=== PATIENT | female | born 1960 | race Caucasian/White ===

== ENCOUNTER 2019-06-24 17:14 | Emergency (ER) | payer OTHER, BC ==
[2019-06-24 17:39] VITALS: TEMP 97.7; BMI 30.7
[2019-06-24] MEDS ORDERED: METOPROLOL TARTRATE 5 MG/5 ML VIAL IVPUSH ONE (17:48)
--- NOTE | 2019-06-24 17:48 | PDOC ---
History of Present Illness - General Chief Complaint: Chest Pain Stated Complaint: CHEST PAIN Time Seen by Provider: 06/24/19 17:23 - History of Present Illness Initial Comments: Ms. Guillen is a 59 y/o female with PMH of re-entrant short circuit, hypothyroidism, presenting today with tachycardia that started 1.5 hours ago. Reports that she was at the car show throughout the day when she felt her heart start racing. Took her metoprolol today. She has had similar episodes a few times over the past year. Was given adenosine once at [facility]. Follows with cards. She had a stress test two weeks ago which was normal, and a normal echo 1 year ago, and normal 24 hr halter monitor. Denies dizziness, headache, nausea, vomiting, chest pain, shortness of breath, abdominal pain. FamHx: quadruple bypass in mother, stents in brother Cards: [employer] Past History - Past Medical History Allergies/Adverse Reactions: Allergies Allergy/AdvReac Type Severity Reaction Status Date / Time No Known Allergies Allergy Verified 06/24/19 17:50 Home Medications: Ambulatory Orders Albuterol 0.083% Nebulizer Radha [Ventolin 0.083% Nebulizer Soln -] 1 neb NEB Q6H PRN 06/24/19 Aspirin/Acetaminophen/Caffeine [Excedrin Migraine Caplet] 1 each PO PRN PRN 10/02 Levothyroxine [Synthroid -] 125 mcg PO DAILY 06/24/19 Metoprolol Tartrate [Lopressor -] 12.5 mg PO DAILY 06/24/19 COPD: No - Immunization History Immunization Up to Date: (unknown) - Suicide/Smoking/Psychosocial Hx Smoking History: Never smoked Hx Alcohol Use: No Drug/Substance Use Hx: No Review of Systems - Review of Systems Comments:: ROS GENERAL/CONSTITUTIONAL: No fever or chills. No weakness._ HEAD, EYES, EARS, NOSE AND THROAT: No change in vision. No ear pain or discharge. No sore throat._ CARDIOVASCULAR: Reports racing heartbeat. Denies shortness of breath_ RESPIRATORY: Denies cough, hemoptysis_ GASTROINTESTINAL: No nausea, vomiting, diarrhea or constipation._ GENITOURINARY: No dysuria, frequency, or change in urination._ MUSCULOSKELETAL: No joint or muscle swelling or pain. No neck or back pain._ SKIN: No rash_ NEUROLOGIC: No headache, vertigo, loss of consciousness, or change in strength/ sensation._ ENDOCRINE: No increased thirst. No abnormal weight change_ HEMATOLOGIC/LYMPHATIC: No anemia, easy bleeding, or history of blood clots._ ALLERGIC/IMMUNOLOGIC: No hives or skin allergy._ *Physical Exam - Vital Signs Last Vital Signs Temp Pulse Resp BP Pulse Ox 97.7 F 135 H 23 H 155/104 H 100 06/24/19 17:38 06/24/19 17:38 06/24/19 17:38 06/24/19 17:38 06/24/19 17:38 - Physical Exam Comments: GENERAL: Awake, alert, and oriented to person/place/time, mildly anxious HEAD: No signs of trauma, normocephalic, atraumatic _ EYES: PERRLA, EOMI, sclera anicteric, conjunctiva clear_ ENT: Hearing grossly normal, nares patent, oropharynx clear without exudates. No uvular deviation. Moist mucosa_ NECK: Normal ROM, supple, no lymphadenopathy, JVD, or masses_ LUNGS: No distress, speaks in full sentences, clear to auscultation bilaterally _ HEART: Tachycardia, normal S1 and S2, no murmurs appreciated, peripheral pulses normal and equal bilaterally._ ABDOMEN: Soft, nontender, normoactive bowel sounds. No guarding, no rebound. No masses_ EXTREMITIES: Normal inspection, Normal range of motion, no edema. No clubbing or cyanosis_ NEUROLOGICAL: Cranial nerves II through XII grossly intact. Normal speech, normal gait, no focal sensorimotor deficits _ SKIN: Warm, Dry, normal turgor, no rashes or lesions noted_ ED Treatment Course - LABORATORY CBC & Chemistry Diagram: 06/24/19 18:00 06/24/19 18:00 Medical Decision Making - Medical Decision Making 59F with hx of tachycardia on metoprolol, likely reentrant circuit, hypothyroidism on synthroid, here for tachycardia that started 1.5 hours ago. Obtain CBC, CMP, TSH, EKG, trop, coags. 06/24/19 1800 HRs in the 135s. 5 mg metoprolol push IV. EKG shows ?sinus tachycardia, left anterior block, no ST elevation/depression, QTc 486 ms. 06/24/19 18:54 Pt reassessed. Went to urinate. HR now in the high 60s/low 70s. Will observe for the next couple of hours. Trop negative. TSH low. 06/24/19 20:05 VSS. Pt stable for d/c. Strict return precautions given. F/u PCP for synthroid medication adjustment and cards. *DC/Admit/Observation/Transfer Diagnosis at time of Disposition: Tachycardia - Discharge Dispostion Disposition: HOME Condition at time of disposition: Stable Decision to Admit order: No - Referrals Referrals: Tyson Betancourt MD [Primary Care Provider] - - Patient Instructions Additional Instructions: Please make an appointment with your PCP (Jerzy) to follow up with your hypothyroidism and synthroid use (your TSH level was low today). 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 Betancourt) to follow up. If you experience any new, worsening, or concerning symptoms, including fast heart rate, palpitations, dizziness, headache, nausea, vomiting, weakness, chest pain, shortness of breath, or any other symptoms, please return to the emergency room. - Post Discharge Activity Forms/Work/School Notes: Back to Work
[2019-06-24] MEDS ORDERED: METOPROLOL TARTRATE 5 MG/5 ML VIAL ONE (17:53)
[2019-06-24 18:09] LABS: BASO % 0.7 % (0-2.0); EOS % 1.3 % (0-4.5); HEMATOCRIT 42.9 % (32.4-45.2); HEMOGLOBIN 14.6 GM/dL (10.7-15.3); MCH 30.1 pg (25.7-33.7); MEAN CELL VOLUME 88.6 fl (80-96); MEAN PLT VOLUME 7.6 fl (7.5-11.1); MONO % 9.5 % (3.8-10.2); NEUT % 56.5 % (42.8-82.8); PLATELET COUNT 304 K/MM3 (134-434); RBC 4.84 M/mm3 (3.60-5.2); RDW 13.5 % (11.6-15.6); WHITE BLOOD COUNT 7.7 K/mm3 (4.0-10.0)
[2019-06-24] MEDS ORDERED: SODIUM CHLORIDE 0.9% 500 ML INFUS.BAG IV ONE (18:09)
--- NOTE | 2019-06-24 18:24 | PDOC ---
Documentation entered by Jackson Hernandez SCRIBE, acting as scribe for Karolina Monahan MD. Karolina Monahan MD: This documentation has been prepared by the scribe, Jackson Hernandez SCRIBE, under my direction and personally reviewed by me in its entirety. I confirm that the documentation accurately reflects all work, treatment, procedures, and medical decision making performed by me. 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 Similar to prior episodes with her arrhythmia. She takes metoprolol daily, follows up with a transit mechanic. She had a recent outpatient holter monitor, readings were normal as per her verbal report. Denies cp, SOB, leg swelling. - Physicial Exam PE: GENERAL: Awake, alert, and fully oriented, in no acute distress HEAD: No signs of trauma EYES: PERRLA, EOMI, sclera anicteric, conjunctiva clear ENT: Auricles normal inspection, hearing grossly normal, nares patent, oropharynx clear without exudates. Moist mucosa NECK: Normal ROM, supple, no lymphadenopathy, JVD, or masses LUNGS: Breath sounds equal, clear to auscultation bilaterally. No wheezes, and no crackles HEART: Tachycardic with regular rhythm, normal S1 and S2, no murmurs, rubs or gallops ABDOMEN: Soft, nontender, normoactive bowel sounds. No guarding, no rebound. No masses EXTREMITIES: Normal range of motion, no edema. No clubbing or cyanosis. No cords, erythema, or tenderness NEUROLOGICAL: Cranial nerves II through XII grossly intact. Normal speech, normal gait. Motor and sensation intact SKIN: Warm, dry, normal turgor, no rashes or lesions noted. - Medical Decision Making 06/24/19 18:22 Gave metoprolol 5mg IV, as patient is already on a B-johanna as an outpatient. She has been given adenosine in the past, states she adamantly does not want to be given adenosine again. Will give 20 minutes for B-johanna to take effect. If not, will consider CCB.
[2019-06-24] MEDS ORDERED: dilTIAZem HCL 50 MG/10 ML - 10 ML VIAL IVPUSH ONE (18:34)
[2019-06-24 18:59] LABS: INR 0.96 (0.83-1.09); PROTHROMBIN TIME (PATIENT) 11.3 SEC (9.7-13.0)
[2019-06-24 19:05] LABS: ALBUMIN 4.3 g/dl (3.4-5.0); ALK PHOS 106 U/L (45-117); ANION GAP 6 MMOL/L (8-16); BILIRUBIN,TOTAL 0.3 mg/dL (0.2-1); BLOOD UREA NITROGEN 15.8 mg/dL (7-18); CALCIUM 9.4 mg/dL (8.5-10.1); CHLORIDE 107 mmol/L (98-107); CO2 30 mmol/L (21-32); CREATININE 0.9 mg/dL (0.55-1.3); GLUCOSE,RANDOM 94 mg/dL (74-106); POTASSIUM 4.1 mmol/L (3.5-5.1); SGOT/AST 22 U/L (15-37); SGPT/ALT 31 U/L (13-61); SODIUM 143 mmol/L (136-145); TOT PROT 8.1 g/dl (6.4-8.2)
[2019-06-24 20:37] VITALS: BP 125/73; PULSE 82
--- NOTE | 2019-06-25 11:15 | EKG ---
Test Reason : Blood Pressure : / mmHG Vent. Rate : 144 BPM Atrial Rate : 144 BPM P-R Int : 130 ms QRS Dur : 076 ms QT Int : 314 ms P-R-T Axes : 000 -61 056 degrees QTc Int : 486 ms SINUS TACHYCARDIA LEFT ANTERIOR FASCICULAR BLOCK NONSPECIFIC ST ABNORMALITY ABNORMAL ECG NO PREVIOUS ECGS AVAILABLE Confirmed by JASON MARIE, KATYA ([id number]) on 06/25/2019 11:15:33 AM Referred By: Confirmed By:KATYA GOMEZ MD
== END 2019-06-24 20:38 | disposition home or self-care (01) ==
LOC: JER 17:14
PROC: 3E033GC Introduction of Other Therapeutic Substance into Peripheral Vein, Percutaneous Approach (ICD-10-PCS; principal; 2019-06-24)
PROC: 3E0337Z Introduction of Electrolytic and Water Balance Substance into Peripheral Vein, Percutaneous Approach (ICD-10-PCS; 2019-06-24)
DX: R00.0 Tachycardia, unspecified (principal); E03.9 Hypothyroidism, unspecified
CPT/HCPCS: 36415; 80053; 82550; 84443; 84484; 85025; 85610; 85730; 93005; 93010; 99284-25

== ENCOUNTER 2025-01-03 15:12 | Inpatient (IN) | payer OTHER, MEDICARE ==
[2025-01-03 15:31] VITALS: BMI 29.3
[2025-01-03] MEDS ORDERED: LIDOCAINE 5% TOPICAL PATCH ONE (17:03)
[2025-01-03] MEDS ORDERED: KETOROLAC TROMETHAMINE 15 MG/ML VIAL ONE ×2 (17:04→23:27)
[2025-01-03] MEDS: LIDOCAINE 5% TOPICAL PATCH TP ONE (17:27)
[2025-01-03] MEDS: KETOROLAC TROMETHAMINE 30 MG/1 ML VIAL IVPUSH ONE (17:29)
[2025-01-03 17:49] LABS: BASO % 0.3 % (0-2.0); EOS % 0.8 % (0-4.5); HEMATOCRIT 40.3 % (32.4-45.2); HEMOGLOBIN 13.5 GM/dL (10.7-15.3); LYMPH % 13.5 % (8-40); MCH 29.4 pg (25.7-33.7); MCHC 33.6 g/dl (32.0-36.0); MEAN CELL VOLUME 87.6 fl (80-96); MONO % 7.9 % (3.8-10.2); NEUT % 77.5 % (42.8-82.8); PLATELET COUNT 380 10^3/uL (134-434); RBC 4.61 M/mm3 (3.60-5.2); RDW 13.8 % (11.6-15.6); WHITE BLOOD COUNT 11.6 K/mm3 (4.0-10.0)
[2025-01-03] MEDS ORDERED: CEFTRIAXONE 1 G/50 ML PREMIX 50 ML IVPB ONE (17:50)
[2025-01-03] MEDS ORDERED: AZITHROMYCIN IVPB 500 MG/250 ML BAG IVPB ONE (17:51)
[2025-01-03 18:05] LABS: CHLORIDE 101 mmol/L (98-107); SODIUM 135 mmol/L (136-145)
[2025-01-03 18:07] LABS: CALCIUM 9.1 mg/dL (8.5-10.1)
[2025-01-03 18:08] LABS: ALBUMIN 3.1 g/dl (3.4-5.0); BLOOD UREA NITROGEN 7.9 mg/dL (7-18); CO2 30 mmol/L (21-32); GLUCOSE,RANDOM 99 mg/dL (74-106)
[2025-01-03 18:11] LABS: CREATININE 0.9 mg/dL (0.55-1.3); SGOT/AST 69 U/L (15-37)
[2025-01-03 18:12] LABS: BILIRUBIN,TOTAL 0.6 mg/dL (0.2-1); TOT PROT 7.6 g/dl (6.4-8.2)
[2025-01-03 18:13] LABS: ALK PHOS 98 U/L (45-117)
[2025-01-03] MEDS: AZITHROMYCIN IVPB 500 MG in DEXTROSE 5%-WATER - 250 ML IVPB ONE (18:14)
[2025-01-03 18:33] LABS: ANION GAP 4 mmol/L (4-13); POTASSIUM 6.2 mmol/L (3.5-5.1); SGPT/ALT 30 U/L (13-61)
[2025-01-03] MEDS ORDERED: VANCOMYCIN/WATER 1250 MG 1,250 MG/250 ML BAG IVPB ONE (18:46)
[2025-01-03] MEDS: VANCOMYCIN/WATER 1250 MG 1,250 MG/250 ML BAG IVPB ONE (19:05)
[2025-01-03 19:30] LABS: INR 1.09 (0.83-1.09)
[2025-01-03 19:32] LABS: ACTIVATED PTT 33.5 SECONDS (25.2-36.5)
[2025-01-03 19:50] LABS: POTASSIUM 4.1 mmol/L (3.5-5.1)
[2025-01-03 19:51] LABS: CALCIUM 8.9 mg/dL (8.5-10.1)
[2025-01-03 19:52] LABS: BLOOD UREA NITROGEN 8.6 mg/dL (7-18)
[2025-01-03 19:55] LABS: CREATININE 0.8 mg/dL (0.55-1.3)
[2025-01-03] MEDS ORDERED: cefTRIAXone SODIUM 1 GM VIAL ONE (20:04)
[2025-01-03] MEDS ORDERED: DEXTROSE 5%-WATER 100 ML IVPB ONE (20:04)
[2025-01-03] MEDS: CEFTRIAXONE 1 GM in DEXTROSE 5%-WATER - 100 ML IVPB ONE (21:41)
[2025-01-03] MEDS: LIDOCAINE PATCH REMOVAL MC SCH ×2 (22:01→22:33)
[2025-01-03] MEDS ORDERED: PIPERACILLIN/TAZOB 4.5 GM 4.5 GM in DEXTROSE 5%-WATER 100 ML IVPB SCH (22:30)
[2025-01-03] MEDS ORDERED: PIPERACILLIN/TAZOB 4.5 GM 4.5 GM/100 ML BAG IVPB ONE (23:27)
[2025-01-03] MEDS: PIPERACILLIN/TAZOB 4.5 GM 4.5 GM in DEXTROSE 5%-WATER 100 ML IVPB SCH (23:34)
[2025-01-03] MEDS: KETOROLAC TROMETHAMINE 15 MG/ML VIAL IVPUSH ONE (23:34)
[2025-01-03] MEDS ORDERED: guaiFENesin/D-METHORPHAN HB 10 ML UNIT-DOSE CUPS PO PRN (23:51)
[2025-01-04] MEDS: metoPROLOL SUCCINATE 25 MG TAB.SR.24H (FP) PO ONE (00:59)
[2025-01-04] MEDS: metoPROLOL SUCCINATE 25 MG TAB.SR.24H (FP) PO SCH (01:31)
[2025-01-04] MEDS ORDERED: PIPERACILLIN/TAZOB 4.5 GM 4.5 GM/100 ML BAG IVPB ONE ×2 (04:35→11:36)
[2025-01-04] MEDS ORDERED: LEVOTHYROXINE NA 100 MCG TABLET (FP) ONE (05:27)
[2025-01-04] MEDS: OFLOXACIN 0.3% OPHTHALMIC SOLUTION 5 ML BOTTLE OD SCH (06:10)
[2025-01-04] MEDS: LEVOTHYROXINE NA 100 MCG TABLET (FP) PO SCH (06:10)
[2025-01-04] MEDS ORDERED: VANCOMYCIN/WATER 1250 MG 1,250 MG/250 ML BAG IVPB SCH (08:00)
[2025-01-04] MEDS: VANCOMYCIN/WATER 1250 MG 1,250 MG/250 ML BAG IVPB SCH (08:52)
[2025-01-04] MEDS ORDERED: VANCOMYCIN/WATER 1250 MG 1,250 MG/250 ML BAG IVPB ONE (08:53)
[2025-01-04] MEDS ORDERED: HYDROCHLOROTHIAZIDE 25 MG TABLET (FP) ONE (10:26)
[2025-01-04] MEDS ORDERED: AZITHROMYCIN 250 MG TABLET ONE (10:26)
[2025-01-04] MEDS ORDERED: metoPROLOL SUCCINATE 25 MG TAB.SR.24H (FP) PO ONE (10:26)
[2025-01-04] MEDS ORDERED: LIDOCAINE 4% PATCH TP ONE (10:27)
[2025-01-04] MEDS ORDERED: ENOXAPARIN NA (PORCINE) 40 MG/0.4 ML DISP.SYRIN SQ ONE (10:27)
[2025-01-04] MEDS: AZITHROMYCIN 250 MG TABLET PO SCH (10:38)
[2025-01-04] MEDS: ENOXAPARIN NA (PORCINE) 40 MG/0.4 ML DISP.SYRIN SQ SCH (10:38)
[2025-01-04] MEDS: HYDROCHLOROTHIAZIDE 12.5 MG CAPSULE (FP) PO SCH (10:38)
[2025-01-04] MEDS: LIDOCAINE 4% PATCH TP SCH (10:38)
[2025-01-04 11:09] LABS: BASO % 0.8 % (0-2.0); EOS % 2.7 % (0-4.5); HEMATOCRIT 36.3 % (32.4-45.2); HEMOGLOBIN 12.2 GM/dL (10.7-15.3); LYMPH % 26.9 % (8-40); MCH 29.3 pg (25.7-33.7); MCHC 33.7 g/dl (32.0-36.0); MEAN CELL VOLUME 86.9 fl (80-96); MONO % 8.9 % (3.8-10.2); NEUT % 60.7 % (42.8-82.8); PLATELET COUNT 391 10^3/uL (134-434); RBC 4.18 M/mm3 (3.60-5.2); RDW 13.4 % (11.6-15.6); WHITE BLOOD COUNT 6.7 K/mm3 (4.0-10.0)
[2025-01-04 11:35] LABS: POTASSIUM 3.5 mmol/L (3.5-5.1)
[2025-01-04 11:40] LABS: ALBUMIN 2.8 g/dl (3.4-5.0); MAGNESIUM 2.2 mg/dL (1.8-2.4)
[2025-01-04 11:43] LABS: CREATININE 0.9 mg/dL (0.55-1.3); PHOSPHOROUS 3.1 mg/dL (2.5-4.9)
[2025-01-04 11:45] LABS: BILIRUBIN,TOTAL 0.5 mg/dL (0.2-1); TOT PROT 6.4 g/dl (6.4-8.2)
[2025-01-04] MEDS: SODIUM CHLORIDE 1,000 ML IV SCH (13:52)
[2025-01-04] MEDS ORDERED: ALBUTEROL SO4 2.5/IPRATROPIUM 0.5 INH SOL 3 ML VIAL.NEB. NEB PRN (17:49)
[2025-01-04] MEDS: methylPREDNISolone NA SUCC 40 MG/1 ML VIAL IVPUSH SCH (18:21)
[2025-01-04] MEDS ORDERED: ALBUTEROL SO4 2.5/IPRATROPIUM 0.5 INH SOL 3 ML VIAL.NEB. NEB SCH (20:00)
[2025-01-04] MEDS: ACETAMINOPHEN 325 MG TABLET (FP) PO PRN (21:22)
[2025-01-04] MEDS: ERYTHROMYCIN 0.5% OPHTHALMIC OINTMENT 3.5 GM TUBE OD SCH (22:20)
[2025-01-05 07:49] LABS: BASO % 0.2 % (0-2.0); HEMATOCRIT 38.2 % (32.4-45.2); HEMOGLOBIN 13.1 GM/dL (10.7-15.3); LYMPH % 15.8 % (8-40); MCH 29.8 pg (25.7-33.7); MCHC 34.4 g/dl (32.0-36.0); MEAN CELL VOLUME 86.8 fl (80-96); MEAN PLT VOLUME 7.4 fl (7.5-11.1); MONO % 2.9 % (3.8-10.2); NEUT % 81.1 % (42.8-82.8); PLATELET COUNT 465 10^3/uL (134-434); RDW 13.4 % (11.6-15.6); WHITE BLOOD COUNT 7.3 K/mm3 (4.0-10.0)
[2025-01-05 08:02] LABS: POTASSIUM 4.1 mmol/L (3.5-5.1)
[2025-01-05 08:04] LABS: CALCIUM 9.2 mg/dL (8.5-10.1)
[2025-01-05 08:05] LABS: ALBUMIN 3.2 g/dl (3.4-5.0); BLOOD UREA NITROGEN 11.6 mg/dL (7-18); MAGNESIUM 2.2 mg/dL (1.8-2.4)
[2025-01-05 08:08] LABS: CREATININE 0.8 mg/dL (0.55-1.3)
[2025-01-05 08:09] LABS: BILIRUBIN,TOTAL 0.4 mg/dL (0.2-1); TOT PROT 7.2 g/dl (6.4-8.2)
[2025-01-05 15:17] LABS: N-TERMINAL BNP 196.6 pg/ml (5-125)
[2025-01-05] MEDS: CEFTRIAXONE 1 G/50 ML PREMIX 50 ML IVPB SCH (23:18)
[2025-01-06 08:00] LABS: BASO % 0.3 % (0-2.0); EOS % 0.2 % (0-4.5); HEMATOCRIT 37.8 % (32.4-45.2); HEMOGLOBIN 12.7 GM/dL (10.7-15.3); LYMPH % 26.1 % (8-40); MCH 29.6 pg (25.7-33.7); MCHC 33.6 g/dl (32.0-36.0); MEAN CELL VOLUME 88.2 fl (80-96); MEAN PLT VOLUME 7.3 fl (7.5-11.1); MONO % 5.6 % (3.8-10.2); NEUT % 67.8 % (42.8-82.8); PLATELET COUNT 505 10^3/uL (134-434); RBC 4.29 M/mm3 (3.60-5.2); RDW 13.6 % (11.6-15.6); WHITE BLOOD COUNT 12.2 K/mm3 (4.0-10.0)
[2025-01-06 08:12] LABS: POTASSIUM 3.8 mmol/L (3.5-5.1)
[2025-01-06 08:14] LABS: CALCIUM 9.4 mg/dL (8.5-10.1)
[2025-01-06 08:15] LABS: ALBUMIN 3.1 g/dl (3.4-5.0); BLOOD UREA NITROGEN 14.8 mg/dL (7-18); MAGNESIUM 2.2 mg/dL (1.8-2.4)
[2025-01-06 08:18] LABS: CREATININE 0.8 mg/dL (0.55-1.3)
[2025-01-06 08:19] LABS: BILIRUBIN,TOTAL 0.2 mg/dL (0.2-1); TOT PROT 6.9 g/dl (6.4-8.2)
[2025-01-06] MEDS ORDERED: guaiFENesin/D-METHORPHAN HB 10 ML UNIT-DOSE CUPS PO PRN (10:39)
[2025-01-06] MEDS: guaiFENesin/CODEINE 10 ML UNIT-DOSE CUPS PO PRN (11:24)
[2025-01-06] MEDS: LOPERAMIDE HCL 2 MG CAPSULE PO ONE (14:12)
[2025-01-06 22:29] VITALS: TEMP 98.1
[2025-01-07 07:22] LABS: BASO % 0.3 % (0-2.0); EOS % 0.2 % (0-4.5); HEMATOCRIT 41.2 % (32.4-45.2); HEMOGLOBIN 13.9 GM/dL (10.7-15.3); LYMPH % 33.1 % (8-40); MCH 29.5 pg (25.7-33.7); MCHC 33.8 g/dl (32.0-36.0); MEAN CELL VOLUME 87.2 fl (80-96); MEAN PLT VOLUME 7.2 fl (7.5-11.1); MONO % 5.7 % (3.8-10.2); NEUT % 60.7 % (42.8-82.8); PLATELET COUNT 558 10^3/uL (134-434); RBC 4.72 M/mm3 (3.60-5.2); WHITE BLOOD COUNT 8.9 K/mm3 (4.0-10.0)
[2025-01-07 07:42] LABS: POTASSIUM 4.2 mmol/L (3.5-5.1)
[2025-01-07 07:44] LABS: CALCIUM 9.7 mg/dL (8.5-10.1)
[2025-01-07 07:45] LABS: ALBUMIN 3.4 g/dl (3.4-5.0); BLOOD UREA NITROGEN 16.7 mg/dL (7-18); MAGNESIUM 2.2 mg/dL (1.8-2.4)
[2025-01-07 07:48] LABS: CREATININE 0.9 mg/dL (0.55-1.3)
[2025-01-07 07:49] LABS: BILIRUBIN,TOTAL 0.3 mg/dL (0.2-1); TOT PROT 7.4 g/dl (6.4-8.2)
[2025-01-07 10:59] VITALS: BP 110/58; PULSE 59; RESP 17
== END 2025-01-07 13:38 | disposition home or self-care (01) | DRG 194 ==
LOC: JER 15:12 → JERBED 19:31 → OBSVTOIN 22:21 → J4W 01-04 14:38
PROVIDERS: ADMIT Student in an Organized Health Care Education/Training Program
DX: J18.9 Pneumonia, unspecified organism (principal); I47.10 Supraventricular tachycardia, unspecified; J98.11 Atelectasis; E03.9 Hypothyroidism, unspecified; G43.909 Migraine, unspecified, not intractable, without status migrainosus; I71.21 Aneurysm of the ascending aorta, without rupture; J47.9 Bronchiectasis, uncomplicated; R07.89 Other chest pain; I10 Essential (primary) hypertension; R91.1 Solitary pulmonary nodule
CPT/HCPCS: 36415; 71045-TC-FY; 71250-TC; 71275-TC; 80048; 80053; 80061; 83036; 83690; 83735; 83880; 84100; 84443; 84484; 85025; 85379; 85610; 85730; 87040; 87070; 87081; 87205; 87899; 93005; 93010; 93306-TC; 94010; 97116-GP; 97161-GP; 99285-25; G0378; Q9967